=== PATIENT | female | born 1995 | race Caucasian/White ===

== ENCOUNTER 2018-02-18 20:59 | Emergency (ER) | payer SELFPAY ==
[2018-02-18 21:26] VITALS: BP 134/81
--- NOTE | 2018-02-18 23:34 | ED Physician Documentation ---
Female Urogenital Problems - HISTORIAN Historian: patient, spouse - HPI Stated Complaint: "I have had UTI sx's since yesterday" Chief Complaint: Female Urogenital Problems Additional Information: hematuria dysuria onset yesterday urine quite dark no feverl chills suprapubic or back pain Onset: days ago (1) Severity: moderate Location of Pain: denies: abdominal pain, pelvic pain, low back pain Further Comments: yes (unsure if blood from urethra of vagins-not menses at t his time) - Vaginal Bleeding Description of Menstrual: denies: missed period(s) - Associated Symptoms Urinary Symptoms: blood in urine, discomfort w/ urination, burning w/ urination Discharge: denies: vaginal discharge, vaginal fluid leakage - ROS CONST: no problems GI/: denies: nausea, vomiting, decreased appetite CVS/RESP: none. denies: chest pain, shortness of breath EYES/ENT: none NEURO/PSYCH: none MS/SKIN/LYMPH: none (occ but fairly rare uti) - PAST HX Past History: other (porev uti-rarely) Other History: none Surgeries/Procedures: other (wrist) Allergies/Adverse Reactions: Allergies Allergy/AdvReac Type Severity Reaction Status Date / Time No Known Allergies Allergy Verified 02/19/18 00:31 Home Medications: Ambulatory Orders Medication Instructions Recorded NK [NK] 02/19/18 - SOCIAL HX Smoking History: non-smoker Alcohol Use: rarely Drug Use: none - FAMILY HX Family History: none - VITAL SIGNS Vital Signs: Vital Signs Temp Pulse Resp BP Pulse Ox 98.3 F 110 H 18 134/81 99 02/18/18 21:12 02/18/18 21:12 02/18/18 21:12 02/18/18 21:12 02/18/18 21:12 - REVIEWED ASSESSMENTS Nursing Assessment Reviewed: Yes Vitals Reviewed: Yes ED Results Lab/Radiology - Radiology Radiology Impressions: urine quite dark pasdt few days - much moreso than usual=---ua = wnl except sp gr 1030 Female Urogenital Problems - EXAM General Appearance: mild distress EENT: eye inspection normal Neck: nml inspection Respiratory: no resp. distress, breath sounds nml, respiratory distress CVS: reg rate & rhythm, heart sounds normal Abdomen: soft, non-tender, no distention Back: non-tender, painless ROM Extremities: non-tender, normal range of motion Neuro: oriented X3, motor nml, sensation nml, mood/affect nml Discharge Clincal Impression: dehydration dysuria hematuria udo, suspect dehydration Referrals: Primary Doctor,No [Primary Care Provider] - 2 Days Comments: elect much more hyddration take azo if needed rt ed or see pcp in fnt better after hydration Condition: Good Disposition: 01 HOME, SELF-CARE Decision to Admit: NO Decision Time: 23:40
[2018-02-19 07:18] LABS: APPEARANCE,URINE TURBID (CLEAR); COLOR,URINE AMBER (YELLOW)
[2018-02-19 07:19] LABS: OCCULT BLOOD,URINE 3+ (NEGATIVE); PH URINE 5.5 (5.0 - 8.0)
== END 2018-02-18 21:28 | disposition home or self-care (01) ==
LOC: ED 20:59
DX: E86.0 Dehydration (principal); R30.0 Dysuria; R31.9 Hematuria, unspecified
CPT/HCPCS: 81002; 99283